=== PATIENT | female | born 1965 | race Caucasian/White ===

== ENCOUNTER → 2019-05-28 16:00 | Outpatient (CLI) | payer BC, SELFPAY ==
--- NOTE | 2019-05-28 16:09 | BI_ITS ---
MAMMOGRAPHY - BILATERAL SCREENING 3-D TOMOSYNTHESIS REASON FOR EXAM: Female, 53 years old. PERTINENT HISTORY: No significant family history. TECHNIQUE: 2-D mammograms and 3-D Tomosynthesis of the breast (s) were performed. CAD was performed. COMPARISON: March 16, 2017 FINDINGS: The breast composition is . Fibroglandular tissue No dense spiculated masses or suspicious microcalcifications are identified. No architectural distortion is identified. There is no skin thickening or nipple retraction. There are benign-appearing lymph nodes in the axillary areas bilaterally There has been no significant change since the prior study March 16, 2017. BI/SCREEN MAMM (CAD) W/GWYN BILAT IMPRESSION: No mammographic signs of malignancy. Routine yearly mammograms recommended. ASSESSMENT CATEGORY: BIRADS Category 1: Negative. A letter regarding these results will be sent to the patient by the facility within 30 days. FOLLOW UP RECOMMENDATION: Yearly follow up mammogram recommended. (A) Approximately 10% of breast cancers are not detected by mammography. A normal mammogram should not delay biopsy of a clinically suspicious abnormality. Electronically Signed: Shaila Walker, at 13:48 EST Tel , Service support ,
== END ==
PROVIDERS: Family Provider Family Medicine; PCP Family Medicine; Referring Provider Nurse Practitioner Family; Visit Provider Nurse Practitioner Family
DX: Z12.31 Encounter for screening mammogram for malignant neoplasm of breast (principal)
CPT/HCPCS: 77063; 77067

== ENCOUNTER → 2019-08-04 10:03 | Outpatient (CLI) | payer BC, SELFPAY ==
[2019-08-04 11:35] LABS: AST(SGOT) 13 U/L (15-37); Alanine Aminotransfer ALT/SGPT 20 U/L (13-56); Albumin, Serum 3.9 g/dL (3.2-5.0); Alkaline Phosphatase 84 U/L (45-117); Bilirubin, Direct 0.07 mg/dL (0.00-0.30); Cholesterol 229 mg/dL (200); Globulin 3.8 g/dL (2.2-4.2); High Density Lipoprotein 55 mg/dL; Protein, Total 7.7 g/dL (6.4-8.2); Triglycerides 121 mg/dL; Very Low Density Lipoprotein 24 mg/dL (5-40)
== END ==
PROVIDERS: PCP Nurse Practitioner Family; Referring Provider Nurse Practitioner Family; Visit Provider Nurse Practitioner Family
DX: E78.5 Hyperlipidemia, unspecified (principal)
CPT/HCPCS: 36415; 80061; 80076

== ENCOUNTER → 2020-02-05 13:42 | Outpatient (CLI) | payer BC, SELFPAY ==
[2020-02-05 14:24] LABS: ALB/GLOB Ratio 1.2 RATIO (0.9-2.4); AST(SGOT) 8 U/L (15-37); Alanine Aminotransfer ALT/SGPT 15 U/L (13-56); Alkaline Phosphatase 76 U/L (45-117); Anion Gap 6 (5-15); BUN 13 mg/dL (7-18); BUN/Creat Ratio 15.3 RATIO (10-20); Calcium,Total 9.1 mg/dL (8.5-10.1); Chloride 105 mmol/L (98-107); Cholesterol 238 mg/dL (200); Creatinine, Serum 0.85 mg/dL (0.55-1.02); EST Glomerular Filtration Rate 74 mL/min (>60); Est Glom Filt Rate - Afr Amer 90 mL/min (>60); Globulin 3.3 g/dL (2.2-4.2); Glucose 87 mg/dL (74-106); High Density Lipoprotein 57 mg/dL; Protein, Total 7.3 g/dL (6.4-8.2); Sodium Level 139 mmol/L (136-145); Thyroid Stim Hormone (TSH) 0.88 uIU/mL (0.358-3.74); Triglycerides 141 mg/dL; Very Low Density Lipoprotein 28 mg/dL (5-40)
== END ==
PROVIDERS: PCP Nurse Practitioner Family; Referring Provider Nurse Practitioner Family; Visit Provider Nurse Practitioner Family
DX: I10 Essential (primary) hypertension (principal); E78.5 Hyperlipidemia, unspecified
CPT/HCPCS: 36415; 80053; 80061; 84443

== ENCOUNTER → 2020-07-28 11:24 | Outpatient (CLI) | payer BC, SELFPAY ==
--- NOTE | 2020-07-28 11:27 | BI_ITS ---
MAMMOGRAPHY - BILATERAL SCREENING REASON FOR EXAM: Female, 54 years old. Routine annual screening examination. PERTINENT HISTORY: Non-contributory. TECHNIQUE: Digital bilateral breast gwyn (3D mammographic acquisition) in the CC and MLO projections. 2-D mediolateral oblique (MLO) and craniocaudad (CC) views of both breasts were obtained. CAD: Full Field Digital Mammography with Computer Added Detection was performed. COMPARISON: Comparison is made with prior study dated 05/28/2019 and 03/16/2017. FINDINGS: Breast Composition: There are scattered areas of fibroglandular density. There are no dominant masses or suspicious calcifications. Stable benign-appearing bilateral axillary lymph nodes. No other significant abnormalities are identified. There has been no significant change since the prior study. BI/SCRN MAMM (CAD)W/GWYN BILAT IMPRESSION: Stable bilateral screening mammogram. Yearly follow-up mammogram recommended. (A) ASSESSMENT CATEGORY: BIRADS Category 2: Benign. A letter regarding these results will be sent to the patient by the facility within 30 days. Approximately 10% of breast cancers are not detected by mammography. A normal mammogram should not delay biopsy of a clinically suspicious abnormality. [id number] Electronically Signed: Junior Sun MD at 12:12 EST , Service support ,
== END ==
PROVIDERS: PCP Nurse Practitioner Family; Referring Provider Nurse Practitioner Family; Visit Provider Nurse Practitioner Family
DX: Z12.31 Encounter for screening mammogram for malignant neoplasm of breast (principal)
CPT/HCPCS: 77063; 77067

== ENCOUNTER → 2021-02-01 09:15 | Outpatient (CLI) | payer BC, SELFPAY ==
[2021-02-01 10:32] LABS: ALB/GLOB Ratio 1.2 RATIO (0.9-2.4); AST(SGOT) 18 U/L (15-37); Alanine Aminotransfer ALT/SGPT 31 U/L (13-56); Albumin, Serum 3.8 g/dL (3.2-5.0); Alkaline Phosphatase 68 U/L (45-117); Anion Gap 10 (5-15); BUN 20 mg/dL (7-18); BUN/Creat Ratio 25.3 RATIO (10-20); Calcium,Total 8.9 mg/dL (8.5-10.1); Chloride 104 mmol/L (98-107); Cholesterol 278 mg/dL (200); Creatinine, Serum 0.79 mg/dL (0.55-1.02); EST Glomerular Filtration Rate 80 mL/min (>60); Est Glom Filt Rate - Afr Amer 97 mL/min (>60); Globulin 3.3 g/dL (2.2-4.2); Glucose 89 mg/dL (74-106); High Density Lipoprotein 73 mg/dL; Potassium 4.1 mmol/L (3.5-5.1); Protein, Total 7.1 g/dL (6.4-8.2); Sodium Level 139 mmol/L (136-145); Thyroid Stim Hormone (TSH) 1.06 uIU/mL (0.358-3.74); Triglycerides 98 mg/dL; Very Low Density Lipoprotein 20 mg/dL (5-40)
== END ==
PROVIDERS: PCP Nurse Practitioner Family; Referring Provider Nurse Practitioner Family; Visit Provider Nurse Practitioner Family
DX: I10 Essential (primary) hypertension (principal); E78.5 Hyperlipidemia, unspecified
CPT/HCPCS: 36415; 80053; 80061; 84443

== ENCOUNTER 2021-08-10 11:35 | Outpatient (CLI) | payer BC, SELFPAY ==
[2021-08-10 12:56] LABS: AST(SGOT) 12 U/L (15-37); Alanine Aminotransfer ALT/SGPT 22 U/L (13-56); Alkaline Phosphatase 71 U/L (45-117); Bilirubin, Direct 0.14 mg/dL (0.00-0.30); Cholesterol 203 mg/dL (200); Globulin 3.5 g/dL (2.2-4.2); High Density Lipoprotein 71 mg/dL; Protein, Total 7.5 g/dL (6.4-8.2); Triglycerides 104 mg/dL; Very Low Density Lipoprotein 21 mg/dL (5-40)
== END 2021-08-10 23:59 | disposition home or self-care (01) ==
LOC: LAB 11:36
PROVIDERS: PCP Nurse Practitioner Family; Referring Provider Nurse Practitioner Family; Visit Provider Nurse Practitioner Family
DX: E78.5 Hyperlipidemia, unspecified (principal)
CPT/HCPCS: 36415; 80061; 80076

== ENCOUNTER 2021-09-21 12:03 | Outpatient (CLI) | payer BC, SELFPAY ==
--- NOTE | 2021-09-21 12:06 | BI_ITS ---
MAMMOGRAPHY - BILATERAL SCREENING REASON FOR EXAM: Female, 56 years old. Routine annual screening examination. PERTINENT HISTORY: Non-contributory. TECHNIQUE: Digital bilateral breast gwyn (3D mammographic acquisition) in the CC and MLO projections. 2-D mediolateral oblique (MLO) and craniocaudad (CC) views of both breasts were obtained. CAD: Full Field Digital Mammography with Computer Added Detection was performed. COMPARISON: Comparison is made with prior study dated 07/28/2020 and 05/28/2019 FINDINGS: Breast Composition: There are scattered areas of fibroglandular density. There are no dominant masses or suspicious calcifications. Small benign appearing bilateral axillary. No other significant abnormalities are identified. There has been no significant change since the prior study. BI/SCRN MAMM (CAD)W/GWYN BILAT IMPRESSION: Stable bilateral screening mammogram. Yearly follow-up mammogram recommended. (A) ASSESSMENT CATEGORY: BIRADS Category 2: Benign. A letter regarding these results will be sent to the patient by the facility within 30 days. Approximately 10% of breast cancers are not detected by mammography. A normal mammogram should not delay biopsy of a clinically suspicious abnormality. [id number] Electronically Signed: Junior Sun MD at 12:49 EDT ,
== END 2021-09-21 23:59 | disposition home or self-care (01) ==
LOC: OPBI 12:04
PROVIDERS: PCP Nurse Practitioner Family; Visit Provider Nurse Practitioner Family
DX: Z12.31 Encounter for screening mammogram for malignant neoplasm of breast (principal)
CPT/HCPCS: 77063; 77067

== ENCOUNTER → 2022-10-30 | Outpatient (CLI) | payer OTHER, SELFPAY ==
--- NOTE | 2022-10-30 10:05 | BI_ITS ---
MAMMOGRAPHY - BILATERAL SCREENING REASON FOR EXAM: Female, 57 years old. Routine annual screening examination. PERTINENT HISTORY: Non-contributory. TECHNIQUE: Digital bilateral breast gwyn (3D mammographic acquisition) in the CC and MLO projections. 2-D mediolateral oblique (MLO) and craniocaudad (CC) views of both breasts were obtained. CAD: Full Field Digital Mammography with Computer Added Detection was performed. COMPARISON: Comparison is made with prior study dated September 21, 2021 and January 25, 2021. FINDINGS: Breast Composition: There are scattered areas of fibroglandular density. There are no dominant masses or suspicious calcifications. Stable small benign-appearing bilateral axillary lymph nodes. No other significant abnormalities are identified. There has been no significant change since the prior study. BI/SCRN MAMM (CAD)W/GWYN BILAT IMPRESSION: Stable bilateral screening mammogram. Yearly follow-up mammogram recommended. (A) ASSESSMENT CATEGORY: BIRADS Category 2: Benign. A letter regarding these results will be sent to the patient by the facility within 30 days. Approximately 10% of breast cancers are not detected by mammography. A normal mammogram should not delay biopsy of a clinically suspicious abnormality. [id number] Electronically Signed: Junior Sun MD at 14:57 EDT ,
[2022-10-30 11:06] LABS: Absolute Lymphocyte Count 1.89 X10^3/uL (0.83-4.51); Absolute Neutrophil Count 3.9 X10^3/uL (2.0-7.7); Basophil# 0.03 X10^3/uL; Basophil% 0.5 % (0-1); Eosinophil# 0.03 X10^3/uL; Eosinophils% 0.5 % (0-5); Hematocrit 38.5 % (37-47); Hemoglobin 12.2 g/dL (12.0-15.0); Lymphocyte # 1.89 X10^3/ul (0.83-4.51); Lymphocyte % 30.5 % (19-41); Mean Corp Hgb Conc 31.7 g/dL (32-36); Mean Corpuscular Hgb 29.7 pg (27.0-32.0); Mean Corpuscular Volume 93.7 fL (81-99); Mean Platelet Vol. 9.2 fl (6.2-12.0); Monocyte# 0.33 X10^3/uL; Monocyte% 5.3 % (0-10); NRBC Flagged by Analyzer 0 % (0-5); Neutrophil # 3.89 X10^3/uL (2.7-7.7); Neutrophil % 62.9 % (47-70); Platelet Count 317 K/mm3 (150-450); RBC Distribution Width SD 41.6 fl (35.1-43.9); Red Blood Count 4.11 M/mm3 (4.2-5.4); White Blood Count 6.2 K/mm3 (4.4-11.0)
[2022-10-30 11:34] LABS: Hemoglobin A1c 5.3 % (3.8-5.6)
[2022-10-30 11:38] LABS: ALB/GLOB Ratio 1.2 RATIO (0.9-2.4); AST(SGOT) 18 U/L (15-37); Alanine Aminotransfer ALT/SGPT 24 U/L (13-56); Albumin, Serum 3.8 g/dL (3.2-5.0); Alkaline Phosphatase 73 U/L (45-117); Anion Gap 6 (5-15); BUN 15 mg/dL (7-18); BUN/Creat Ratio 18.4 RATIO (10-20); Calcium,Total 9.6 mg/dL (8.5-10.1); Chloride 105 mmol/L (98-107); Cholesterol 180 mg/dL (200); Creatinine, Serum 0.81 mg/dL (0.55-1.02); EST Glomerular Filtration Rate 77 mL/min (>60); Est Glom Filt Rate - Afr Amer 93 mL/min (>60); Globulin 3.2 g/dL (2.2-4.2); Glucose 99 mg/dL (74-106); High Density Lipoprotein 68 mg/dL; Potassium 4.2 mmol/L (3.5-5.1); Sodium Level 141 mmol/L (136-145); Thyroid Stim Hormone (TSH) 1.01 uIU/mL (0.358-3.74); Triglycerides 133 mg/dL; Very Low Density Lipoprotein 27 mg/dL (5-40)
== END | disposition home or self-care (01) ==
PROVIDERS: PCP Family Medicine; Referring Provider Family Medicine; Visit Provider Family Medicine
DX: Z12.31 Encounter for screening mammogram for malignant neoplasm of breast (principal); Z13.0 Encounter for screening for diseases of the blood and blood-forming organs and certain disorders involving the immune mechanism; Z13.1 Encounter for screening for diabetes mellitus; Z13.29 Encounter for screening for other suspected endocrine disorder
CPT/HCPCS: 36415; 77063; 77067; 80053; 80061; 83036; 84443; 85025

== ENCOUNTER → 2023-01-22 | Outpatient (CLI) | payer OTHER, SELFPAY ==
[2023-01-26 17:43] LABS: HPV HC, High Risk Negative
== END | disposition home or self-care (01) ==
PROVIDERS: PCP Family Medicine; Visit Provider Family Medicine
DX: Z12.4 Encounter for screening for malignant neoplasm of cervix (principal)
CPT/HCPCS: 87624; 88175; G0145

== ENCOUNTER → 2023-11-05 | Outpatient (CLI) | payer OTHER, SELFPAY ==
--- NOTE | 2023-11-05 10:09 | BI_ITS ---
MAMMOGRAPHY - BILATERAL SCREENING REASON FOR EXAM: Female, 58 years old. Routine annual screening examination. PERTINENT HISTORY: Non-contributory. TECHNIQUE: Digital bilateral breast gwyn (3D mammographic acquisition) in the CC and MLO projections. 2-D mediolateral oblique (MLO) and craniocaudad (CC) views of both breasts were obtained. CAD: Full Field Digital Mammography with Computer Added Detection was performed. COMPARISON: Comparison is made with prior study dated October 30, 2022 and September 21, 2021. FINDINGS: Breast Composition: There are scattered areas of fibroglandular density. There are no dominant masses or suspicious calcifications. Stable small benign-appearing bilateral axillary lymph nodes. No other significant abnormalities are identified. There has been no significant change since the prior study. BI/SCRN MAMM (CAD)W/GWYN BILAT IMPRESSION: Stable bilateral screening mammogram. Yearly follow-up mammogram recommended. (A) ASSESSMENT CATEGORY: BIRADS Category 2: Benign. A letter regarding these results will be sent to the patient by the facility within 30 days. Approximately 10% of breast cancers are not detected by mammography. A normal mammogram should not delay biopsy of a clinically suspicious abnormality. [id number] Electronically Signed: Junior Sun MD at 11:19 EDT ,
== END | disposition home or self-care (01) ==
LOC: OPBI 10:08
PROVIDERS: PCP Family Medicine; Referring Provider Family Medicine; Visit Provider Family Medicine
DX: Z12.31 Encounter for screening mammogram for malignant neoplasm of breast (principal)
CPT/HCPCS: 77063; 77067

== ENCOUNTER → 2024-04-15 | Outpatient (CLI) | payer OTHER, SELFPAY ==
[2024-04-15 10:32] LABS: Absolute Lymphocyte Count 1.47 X10^3/uL (0.83-4.51); Absolute Neutrophil Count 4.2 X10^3/uL (2.0-7.7); Basophil# 0.03 X10^3/uL; Basophil% 0.5 % (0-1); Eosinophil# 0.02 X10^3/uL; Eosinophils% 0.3 % (0-5); Hematocrit 37.6 % (37-47); Hemoglobin 12.4 g/dL (12.0-15.0); Lymphocyte # 1.47 X10^3/ul (0.83-4.51); Lymphocyte % 24.3 % (19-41); Mean Platelet Vol. 9.4 fl (6.2-12.0); Monocyte# 0.33 X10^3/uL; Monocyte% 5.4 % (0-10); NRBC Flagged by Analyzer 0 % (0-5); Neutrophil # 4.19 X10^3/uL (2.7-7.7); Neutrophil % 69.2 % (47-70); Platelet Count 322 K/mm3 (150-450); Red Blood Count 4.13 M/mm3 (4.2-5.4); White Blood Count 6.1 K/mm3 (4.4-11.0)
[2024-04-15 11:33] LABS: ALB/GLOB Ratio 1.1 RATIO (0.9-2.4); AST(SGOT) 10 U/L (15-37); Alanine Aminotransfer ALT/SGPT 18 U/L (13-56); Albumin, Serum 3.7 g/dL (3.2-5.0); Alkaline Phosphatase 78 U/L (45-117); Anion Gap 7 (5-15); BUN 14 mg/dL (7-18); BUN/Creat Ratio 16.2 RATIO (10-20); Calcium,Total 9.3 mg/dL (8.5-10.1); Chloride 104 mmol/L (98-107); Cholesterol 205 mg/dL (200); Creatinine, Serum 0.86 mg/dL (0.55-1.02); EST Glomerular Filtration Rate 71 mL/min (>60); Est Glom Filt Rate - Afr Amer 86 mL/min (>60); Globulin 3.4 g/dL (2.2-4.2); Glucose 101 mg/dL (74-106); High Density Lipoprotein 60 mg/dL; Potassium 3.8 mmol/L (3.5-5.1); Protein, Total 7.1 g/dL (6.4-8.2); Sodium Level 137 mmol/L (136-145); Triglycerides 240 mg/dL; Very Low Density Lipoprotein 48 mg/dL (5-40)
[2024-04-15 12:14] LABS: Hemoglobin A1c 5.7 % (3.8-5.6)
== END | disposition home or self-care (01) ==
LOC: LAB 09:55
PROVIDERS: PCP Family Medicine; Referring Provider Family Medicine; Visit Provider Family Medicine
DX: E78.5 Hyperlipidemia, unspecified (principal); Z13.228 Encounter for screening for other metabolic disorders; Z13.0 Encounter for screening for diseases of the blood and blood-forming organs and certain disorders involving the immune mechanism
CPT/HCPCS: 36415; 80053; 80061; 83036; 84443; 85025

== ENCOUNTER → 2024-12-25 | Outpatient (CLI) | payer OTHER, SELFPAY ==
--- NOTE | 2024-12-25 07:42 | BI_ITS ---
EXAM: SCRN MAMM (CAD)W/GWYN BILAT DATE: 12/25/2024 CLINICAL HISTORY: F, Age 59 y/o , SCREENING Noncontributory. TECHNIQUE: SCRN MAMM (CAD)W/GWYN BILAT COMPARISON: Prior exam(s) dated November 05, 2023.. FINDINGS: TISSUE DENSITY: There are scattered areas of fibroglandular density. Bilateral Breast Mammographic Findings: No significant masses, calcifications or other abnormalities are identified. No suspicious masses, areas of developing architectural distortion, or suspicious calcifications. There has been no significant interval change. BI/SCRN MAMM (CAD)W/GWYN BILAT IMPRESSION: Stable examination OVERALL FINAL ASSESSMENT BI-RADS 1: NEGATIVE. RECOMMEND ANNUAL MAMMOGRAPHIC SCREENING. RECOMMENDATION: Routine annual follow-up in 1 Year A letter with findings and recommendations will be mailed to the patient. Reading Location: [id number]
--- OUTSIDE RECORDS SUMMARY | 2024-12-25 08:01 | XMS RPT_ITS | CCD ---
Author Organization [facility] Inform ion Partnership [facility] Care Team Providers Care Tire Wrapper Name Role Phone Cece Avina Attending Unavailable Cece Avina Referring Unavailable Iman Scanlon Primary Care Unavailable Iman Scanlon Attending Unavailable CapoGiorgioon Referring Unavailable Capo, Chalon Primary Care Unavailable Problems Problem Classification Problem Date Documented Da te Episodic/Chronic Disorders of lipid metabolism (1 source) Hyperlipidemia, unspecified; Translations: [Hyperlipidemia, unspecified] Onset: 05-11-2024 Chronic Other screening for suspected conditions (not mental disorders or infectious disease) (1 source) Encounter for screening mammogram for malignant neoplasm of breast; Translations: [Encounter for screening mammogram for malignant neoplasm of breast] Onset: 12-18-2024 Episodic Results Test Name Value Interpretation Reference Range Facility CBC W/Diff, Automatedon 04-01 Absolute Lymph 1.47 X10 3/uL Normal 0.83-4.51 [facility] Comment on above: Order Comment: Order Date: 09/20/23 Order Info: 0184-1 - CBCD Performed By: #### L 100.0100, L501.9520, L501.9985, L500.4100, L500.4050 #### [facility] [address] [place], [address] Absolute Neut 4.2 X10 3/uL Normal 2.0-7.7 [facility] Comment on above: Order Comment: Order Date: 09/20/23 Order Info: 0184-1 - CBCD Performed By: #### L 100.0100, L501.9520, L501.9985, L500.4100, L500.4050 #### [facility] [address] [place], [address] Basophils/100 WBC (Bld) 0.5 % Normal 0-1 [facility] Comment on above: Order Comment: Order Date: 09/20/23 Order Info: 018-1 - CBCD Performed By: #### L 100.0100, L501.9520, L501.9985, L500.4100, L500.4050 #### [facility] [address] [place], [address] Eosinophils/100 WBC (Bld) 0.3 % Normal 0-5 [facility] Comment on above: Order Comment: Order Date: 09/20/23 Order Info: 018-1 - CBCD Performed By: #### L 100.0100, L501.9520, L501.9985, L500.4100, L500.4050 #### [facility] [address] [place], [address] Erythrocyte distribution width (RBC) [Ratio] 12.0 % Normal 11.6-14.6 [facility] Comment on above: Order Comment: Order Date: 09/20/23 Order Info: 018- - CBCD Performed By: #### L 100.0100, L501.9520, L501.9985, L500.4100, L500.4050 #### [facility] [address] [place], [address] Hematocrit (Bld) [Volume fraction] 37.6 % Normal 37-47 [facility] Comment on above: Order Comment: Order Date: 09/20/23 Order Info: 018-1 - CBCD Performed By: #### L 100.0100, L501.9520, L501.9985, L500.4100, L500.4050 #### [facility] [address] [place], [address] Hemoglobin (Bld) [Mass/Vol] 12.4 g/dL Normal 12.0-15.0 [facility] Comment on above: Order Comment: Order Date: 09/20/23 Order Info: 0184- - CBCD Performed By: #### L 100.0100, L501.9520, L501.9985, L500.4100, L500.4050 #### [facility] [address] [place], [address] IG% 0.300 Normal 0.0-0.9 [facility] Comment on above: Order Comment: Order Date: 09/20/23 Order Info: [id number] - CBCD Result Comment: IG% - Immature Granulocytes (promyelocytes, myelocytes and metamyelocytes) > 1% indicates that a LEFT SHIFT is Present. Performed By: #### L 100.0100, L501.9520, L501.9985, L500.4100, L500.4050 #### [facility] [address] [place], [address] Lymphocytes/100 WBC (Bld) 24.3 % Normal 19-41 [facility] Comment on above: Order Comment: Order Date: 09/20/23 Order Info: 0184- - CBCD Performed By: #### L 100.0100, L501.9520, L501.9985, L500.4100, L500.4050 #### [facility] [address] [place], [address] MCH (RBC) [Entitic mass] 30.0 pg Normal 27.0-32.0 [facility] Comment on above: Order Comment: Order Date: 09/20/23 Order Info: 0184- - CBCD Performed By: #### L 100.0100, L501.9520, L501.9985, L500.4100, L500.4050 #### [facility] [address] [place], [address] MCHC (RBC) [Mass/Vol] 33.0 g/dL Normal 32-36 [facility] Comment on above: Order Comment: Order Date: 09/20/23 Order Info: 0184-1 - CBCD Performed By: #### L 100.0100, L501.9520, L501.9985, L500.4100, L500.4050 #### [facility] [address] [place], [address] MCV (RBC) [Entitic vol] 91.0 fL Normal 81-99 [facility] Comment on above: Order Comment: Order Date: 09/20/23 Order Info: 018- - CBCD Performed By: #### L 100.0100, L501.9520, L501.9985, L500.4100, L500.4050 #### [facility] [address] [place], [address] Monocytes/100 WBC (Bld) 5.4 % Normal 0-10 [facility] Comment on above: Order Comment: Order Date: 09/20/23 Order Info: 018- - CBCD Performed By: #### L 100.0100, L501.9520, L501.9985, L500.4100, L500.4050 #### [facility] [address] [place], [address] Neutrophils/100 WBC (Bld) 69.2 % Normal 47-70 [facility] Comment on above: Order Comment: Order Date: 09/20/23 Order Info: 0184- - CBCD Performed By: #### L 100.0100, L501.9520, L501.9985, L500.4100, L500.4050 #### [facility] [address] [place], [address] Nucleated RBC (Bld) [#/Vol] 0 10*3/uL Normal 0-5 [facility] Comment on above: Order Comment: Order Date: 09/20/23 Order Info: 0184-1 - CBCD Performed By: #### L 100.0100, L501.9520, L501.9985, L500.4100, L500.4050 #### [facility] [address] [place], [address] Platelet mean volume (Bld) [Entitic vol] 9.4 fL Normal 6.2-12.0 [facility] Comment on above: Order Comment: Order Date: 09/20/23 Order Info: 0184- - CBCD Performed By: #### L 100.0100, L501.9520, L501.9985, L500.4100, L500.4050 #### [facility] [address] [place], [address] Platelets (Bld) [#/Vol] 322 10*3/uL Normal 150-450 [facility] Comment on above: Order Comment: Order Date: 09/20/23 Order Info: 018- - CBCD Performed By: #### L 100.0100, L501.9520, L501.9985, L500.4100, L500.4050 #### [facility] [address] [place], [address] RBC (Bld) [#/Vol] 4.13 10*6/uL Low 4.2-5.4 [facility] Comment on above: Order Comment: Order Date: 09/20/23 Order Info: 0184- - CBCD Performed By: #### L 100.0100, L501.9520, L501.9985, L500.4100, L500.4050 #### [facility] [address] [place], [address] RDW SD 40.0 fl Normal 35.1-43.9 [facility] Comment on above: Order Comment: Order Date: 09/20/23 Order Info: 0184- - CBCD Performed By: #### L 100.0100, L501.9520, L501.9985, L500.4100, L500.4050 #### [facility] [address] [place], [address] WBC (Bld) [#/Vol] 6.1 10*3/uL Normal 4.4-11.0 [facility] Comment on above: Order Comment: Order Date: 09/20/23 Order Info: 0184-1 - CBCD Performed By: #### L 100.0100, L501.9520, L501.9985, L500.4100, L500.4050 #### [facility] [address] [place], [address] Comprehensive Metabolic Prof ilon 04-15-2024 Albumin [Mass/Vol] 3.7 g/dL Normal 3.2-5.0 [facility] Comment on above: Order Comment: Order Date: 09/20/23 Order Info: 0786-1 - CMP Order Info: [id number] - LIPID Order Info: [id number] - TSH Performed By: #### L 100.0100, L501.9520, L501.9985, L500.4100, L500.4050 #### [facility] [address] [place], [address] Albumin/Globulin [Mass ratio] 1.1 {ratio} Normal 0.9-2.4 [facility] Comment on above: Order Comment: Order Date: 09/20/23 Order Info: 0786-1 - CMP Order Info: [id number] - LIPID Order Info: 301-3 - TSH Performed By: #### L 100.0100, L501.9520, L501.9985, L500.4100, L500.4050 #### [facility] [address] [place], [address] ALK P 78 U/L Normal 45-117 [facility] Comment on above: Order Comment: Order Date: 09/20/23 Order Info: 0786-1 - CMP Order Info: [id number] - LIPID Order Info: 301-3 - TSH Performed By: #### L 100.0100, L501.9520, L501.9985, L500.4100, L500.4050 #### [facility] [address] [place], [address] ALT [Catalytic activity/Vol] 18 U/L Normal 13-56 [facility] Comment on above: Order Comment: Order Date: 09/20/23 Order Info: 86-1 - CMP Order Info: - LIPID Order Info: [id number] - TSH Performed By: #### L 100.0100, L501.9520, L501.9985, L500.4100, L500.4050 #### [facility] [address] [place], [address] AST [Catalytic activity/Vol] 10 U/L Low 15-37 [facility] Comment on above: Order Comment: Order Date: 09/20/23 Order Info: 785-07 - CMP Order Info: - LIPID Order Info: 3013 - TSH Performed By: #### L 100.0100, L501.9520, L501.9985, L500.4100, L500.4050 #### [facility] [address] [place], [address] Bilirubin [Mass/Vol] 0.50 mg/dL Normal 0.20-1.00 [facility] Comment on above: Order Comment: Order Date: 09/20/23 Order Info: 785-07 - CMP Order Info: - LIPID Order Info: [id number] - TSH Result Comment: For patients on eltrombopag therapy, use of Dimension [place] TBIL is not recommended. Performed By: #### L 100.0100, L501.9520, L501.9985, L500.4100, L500.4050 #### [facility] [address] [place], [address] BUN/CRE 16.2 RATIO Normal 10-20 [facility] Comment on above: Order Comment: Order Date: 09/20/23 Order Info: 785- - CMP Order Info: - LIPID Order Info: [id number] - TSH Performed By: #### L 100.0100, L501.9520, L501.9985, L500.4100, L500.4050 #### [facility] [address] [place], [address] CA,Total 9.3 mg/dL Normal 8.5-10.1 [facility] Comment on above: Order Comment: Order Date: 09/20/23 Order Info: 0786 - CMP Order Info: - LIPID Order Info: [id number] - TSH Performed By: #### L 100.0100, L501.9520, L501.9985, L500.4100, L500.4050 #### [facility] [address] [place], [address] Chloride [Moles/Vol] 104 mmol/L Normal 98-107 [facility] Comment on above: Order Comment: Order Date: 09/20/23 Order Info: 07 - CMP Order Info: - LIPID Order Info: [id number] - TSH Performed By: #### L 100.0100, L501.9520, L501.9985, L500.4100, L500.4050 #### [facility] [address] [place], [address] CO2 [Moles/Vol] 26.0 mmol/L Normal 21.0-32.0 [facility] Comment on above: Order Comment: Order Date: 09/20/23 Order Info: 0786 - CMP Order Info: [id number] - LIPID Order Info: [id number] - TSH Performed By: #### L 100.0100, L501.9520, L501.9985, L500.4100, L500.4050 #### [facility] [address] [place], [address] Creatinine [Mass/Vol] 0.86 mg/dL Normal 0.55-1.02 [facility] Comment on above: Order Comment: Order Date: 09/20/23 Order Info: 785-07 - CMP Order Info: - LIPID Order Info: [id number] - TSH Result Comment: The validity of the calculated GFR GFRAA in patients over 70 years has not been determined. Clinical correlation is essential. Performed By: #### L 100.0100, L501.9520, L501.9985, L500.4100, L500.4050 #### [facility] [address] [place], [address] EST GFR - AA 86 mL/min Normal >60 [facility] Comment on above: Order Comment: Order Date: 09/20/23 Order Info: 785-07 - CMP Order Info: - LIPID Order Info: [id number] - TSH Result Comment: Afri can [place] GFR Calc Performed By: #### L 100.0100, L501.9520, L501.9985, L500.4100, L500.4050 #### [facility] [address] [place], [address] GAP 7 Normal 5-15 [facility] Comment on above: Order Comment: Order Date: 09/20/23 Order Info: 785-07 - CMP Order Info: - LIPID Order Info: [id number] - TSH Performed By: #### L 100.0100, L501.9520, L501.9985, L500.4100, L500.4050 #### [facility] [address] [place], [address] GFR/1.73 sq M.predicted among non-blacks MDRD (S/P/Bld) [Vol rate/Area] 71 mL/min/{1.73_m2} Normal >60 [facility] Comment on above: Order Comment: Order Date: 09/20/23 Order Info: 785-07 - CMP Order Info: [id number] - LIPID Order Info: [id number] - TSH Result Comment: Non- GFR Calc Performed By: #### L 100.0100, L501.9520, L501.9985, L500.4100, L500.4050 #### [facility] [address] [place], [address] Globulin (S) [Mass/Vol] 3.4 g/dL Normal 2.2-4.2 [facility] Comment on above: Order Comment: Order Date: 09/20/23 Order Info: 0786- - CMP Order Info: - LIPID Order Info: [id number] - TSH Performed By: #### L 100.0100, L501.9520, L501.9985, L500.4100, L500.4050 #### [facility] [address] [place], [address] Glucose [Mass/Vol] 101 mg/dL Normal 74-106 [facility] Comment on above: Order Comment: Order Date: 09/20/23 Order Info: 785-07 - CMP Order Info: - LIPID Order Info: [id number] - TSH Result Comment: Fast ing Glucose result from 100 to 125 mg/dL suggests IMPAIRED HOMEOSTASIS per A.D.A. criteria. Performed By: #### L 100.0100, L501.9520, L501.9985, L500.4100, L500.4050 #### [facility] [address] [place], [address] Potassium [Moles/Vol] 3.8 mmol/L Normal 3.5-5.1 [facility] Comment on above: Order Comment: Order Date: 09/20/23 Order Info: 0786-1 - CMP Order Info: [id number] - LIPID Order Info: [id number] - TSH Performed By: #### L 100.0100, L501.9520, L501.9985, L500.4100, L500.4050 #### [facility] [address] [place], [address] Sodium [Moles/Vol] 137 mmol/L Normal 136-145 [facility] Comment on above: Order Comment: Order Date: 09/20/23 Order Info: 0786-1 - CMP Order Info: [id number] - LIPID Order Info: [id number] - TSH Performed By: #### L 100.0100, L501.9520, L501.9985, L500.4100, L500.4050 #### [facility] [address] [place], [address] T PROT 7.1 g/dL Normal 6.4-8.2 [facility] Comment on above: Order Comment: Order Date: 09/20/23 Order Info: 0786- - CMP Order Info: [id number] - LIPID Order Info: [id number] - TSH Performed By: #### L 100.0100, L501.9520, L501.9985, L500.4100, L500.4050 #### [facility] [address] [place], [address] Urea nitrogen [Mass/Vol] 14 mg/dL Normal 7-18 [facility] Comment on above: Order Comment: Order Date: 09/20/23 Order Info: 0786- - CMP Order Info: [id number] - LIPID Order Info: [id number] - TSH Performed By: #### L 100.0100, L501.9520, L501.9985, L500.4100, L500.4050 #### [facility] [address] [place], [address] Hemoglobin A1con 04-15-2024 HbA1c (Bld) [Mass fraction] 5.7 % High 3.8-5.6 [facility] Comment on above: Order Comment: Order Date: 09/20/23 Order Info: [id number] - A1C Result Comment: Norm al < 5.7 % Prediabetic 5.7 - 6.4 % Diabetic >or= 6.5 % Please note range changes. Performed By: #### L 100.0100, L501.9520, L501.9985, L500.4100, L500.4050 #### [facility] [address] [place], [address] Lipid Profileon 04-15-2024 Cholesterol [Mass/Vol] 205 mg/dL High 200 [facility] Comment on above: Order Comment: Order Date: 09/20/23 Order Info: 0786-1 - CMP Order Info: [id number] - LIPID Order Info: [id number] - TSH Result Comment: <200 mg/dL Desirable 200-240 mg/dL Borderline >240 mg/dL High Risk Performed By: #### L 100.0100, L501.9520, L501.9985, L500.4100, L500.4050 #### [facility] [address] [place], [address] Cholesterol in HDL [Mass/Vol] 60 mg/dL Normal [facility] Comment on above: Order Comment: Order Date: 09/20/23 Order Info: 07 - CMP Order Info: - LIPID Order Info: 3 - TSH Result Comment: The drugs N-Acetylcysteine and Metamizole may falsely depress this assay. Reference Range HDL <40 mg/dL Low HDL Cholesterol HDL >or= 60 mg/dL High HDL Cholesterol Performed By: #### L 100.0100, L501.9520, L501.9985, L500.4100, L500.4050 #### [facility] [address] [place], [address] Cholesterol in LDL [Mass/Vol] 97 mg/dL Normal 0-130 [facility] Comment on above: Order Comment: Order Date: 09/20/23 Order Info: 0786-1 - CMP Order Info: [id number] - LIPID Order Info: [id number] - TSH Performed By: #### L 100.0100, L501.9520, L501.9985, L500.4100, L500.4050 #### [facility] [address] [place], [address] Cholesterol in VLDL [Mass/Vol] 48 mg/dL High 5-40 [facility] Comment on above: Order Comment: Order Date: 09/20/23 Order Info: 0786- - CMP Order Info: - LIPID Order Info: 3 - TSH Performed By: #### L 100.0100, L501.9520, L501.9985, L500.4100, L500.4050 #### [facility] [address] [place], [place], [address] Triglyceride [Mass/Vol] 240 mg/dL High [facility] Comment on above: Order Comment: Order Date: 09/20/23 Order Info: [id number] - CMP Order Info: - LIPID Order Info: 3 - TSH Result Comment: The drugs N-Acetylcysteine and Metamizole may falsely depress this assay. Serum Triglycerides Reference Interval Normal <150 mg/dL Borderline high 150 - 199 mg/dL High 200 - 499 mg/dL Very High > or = 500 mg/dL Performed By: #### L 100.0100, L501.9520, L501.9985, L500.4100, L500.4050 #### [facility] [address] [place], [address] Thyroid Stim Hormone (TSH)on 04-15-2024 TSH 1.330 uIU/mL Normal 0.358-3.740 [facility] Comment on above: Order Comment: Order Date: 09/20/23 Order Info: 0786 - CMP Order Info: - LIPID Order Info: [id number] - TSH Performed By: #### L 100.0100, L501.9520, L501.9985, L500.4100, L500.4050 #### [facility] [address] [place], [address] Absolute lymphocyte countOrd ered By: Desiree Alcala on 10-30-2022 Lymphocytes Auto (Unsp spec) [#/Vol] 1.89 10*3/uL 0.83-4.51 [facility] Basophil percentageOrdered B y: Desiree Alcala on 10-30-2022 Basophils/100 WBC (Bld) 0.5 % 0-1 [facility] Bilirubin [Mass/Vol] 0.30 mg/dL 0.20-1.00 [facility] Comment on above: For patients on eltr ombopag therapy, use of Dimension [place] TBIL is not recommended. Chloride [Moles/Vol] 105 mmol/L 98-107 [facility] Cholesterol [Mass/Vol] 180 mg/dL <200 [facility] Comment on above: <200 mg/dL Desirable 200-240 mg/dL Borderline >240 mg/dL High Risk Eosinophils/100 WBC (Bld) 0.5 % 0-5 [facility] Glucose [Mass/Vol] 99 mg/dL 74-106 [facility] Neutrophils (Bld) [#/Vol] 3.9 10*3/uL 2.0-7.7 [facility] Neutrophils/100 WBC (Bld) 62.9 % 47-70 [facility] Potassium [Moles/Vol] 4.2 mmol/L 3.5-5.1 [facility] Protein [Mass/Vol] 7.0 g/dL 6.4-8.2 [facility] Sodium [Moles/Vol] 141 mmol/L 136-145 [facility] Triglyceride [Mass/Vol] 133 mg/dL <199 [facility] Comment on above: The drugs N-Acetylcy steine and Metamizole may falsely depress this assay.Serum Triglycerides Reference Interval Normal <150 mg/dL Borderline high 150 - 199 mg/dL High 200 - 499 mg/dL Very High > or = 500 mg/dL WBC (Bld) [#/Vol] 6.2 10*3/uL 4.4-11.0 [facility] Blood erythrocytes count (nu mber/volume)Ordered By: Desiree Alcala on 10-30-2022 RBC (Bld) [#/Vol] 4.11 10*6/uL 4.2-5.4 [facility] Blood hemoglobin measurement (mass/volume)Ordered By: Desiree Alcala on 10-30-2022 Hemoglobin (Bld) [Mass/Vol] 12.2 g/dL 12.0-15.0 [facility] Blood lymphocytes/100 leukoc ytesOrdered By: Desiree Alcala on 10-30-2022 Lymphocytes/100 WBC (Bld) 30.5 % 19-41 [facility] Blood monocytes/100 leukocyt esOrdered By: Desiree Alcala on 10-30-2022 Monocytes/100 WBC (Bld) 5.3 % 0-10 [facility] Blood platelet mean volumeOr dered By: Desiree Alcala on 10-30-2022 Platelet mean volume (Bld) [Entitic vol] 9.2 fL 6.2-12.0 [facility] Determination of erythrocyte mean corpuscular volume (MCV)Ordered By: Desiree Alcala on 10-30-2022 MCV (RBC) [Entitic vol] 93.7 fL 81-99 [facility] Hematocrit Auto (Bld) [Volum e fraction]Ordered By: Desiree Alcala on 10-30-2022 Hematocrit (Bld) [Volume fraction] 38.5 % 37-47 [facility] - Chemistry and C hemistry - challengeOrdered By: Desiree Alcala on 10-30-2022 ALP [Catalytic activity/Vol] 73 U/L 45-117 [facility] ALT [Catalytic activity/Vol] 24 U/L 13-56 [facility] CO2 [Moles/Vol] 30.0 mmol/L 21.0-32.0 [facility] Globulin (S) [Mass/Vol] 3.2 g/dL 2.2-4.2 [facility] Urea nitrogen/Creatinine [Mass ratio] 18.4 mg/mg 10-20 [facility] - Hematology and Cell countsOrdered By: Desiree Alcala on 10-30-2022 Erythrocyte distribution width (RBC) [Entitic vol] 41.6 fL 35.1-43.9 [facility] Erythrocyte distribution width (RBC) [Ratio] 12.0 % 11.6-14.6 [facility] Immature granulocytes/100 WBC (Bld) 0.300 % 0.0-0.9 [facility] Comment on above: IG% - Immature Granu locytes (promyelocytes, myelocytes and metamyelocytes) > 1% indicates that a LEFT SHIFT is Present. MCH (RBC) [Entitic mass] 29.7 pg 27.0-32.0 [facility] Nucleated RBC/100 WBC (Bld) [Ratio] 0 % 0-5 [facility] MCHC Auto (RBC) [Mass/Vol]Or dered By: Desiree Alcala on 10-30-2022 MCHC (RBC) [Mass/Vol] 31.7 g/dL 32-36 [facility] No Panel InformationOrdered By: Desiree Alcala on 10-30-2022 Estimated GFR (MDRD) Amer 93 mL/min >60 [facility] Comment on above: GFR Calc Estimated GFR (MDRD) Non-Af Amer 77 mL/min >60 [facility] Comment on above: Non- GFR Calc Thyroid Stimulating Hormone (TSH) 1.01 uIU/mL 0.358-3.74 [facility] Platelets bldOrdered By: Gianluca Alcala on 10-30-2022 Platelets (Bld) [#/Vol] 317 10*3/uL 150-450 [facility] Serum or plasma albumin rené urement (mass/volume)Ordered By: Desiree Alcala on 10-30-2022 Albumin [Mass/Vol] 3.8 g/dL 3.2-5.0 [facility] Serum or plasma albumin/glob ulin mass ratioOrdered By: Desiree Alcala on 10-30-2022 Albumin/Globulin [Mass ratio] 1.2 {ratio} 0.9-2.4 [facility] Serum or plasma calcium rené urement (mass/volume)Ordered By: Desiree Alcala on 10-30-2022 Calcium [Mass/Vol] 9.6 mg/dL 8.5-10.1 [facility] Serum or plasma cholesterol in HDL measurement (mass/volume)Ordered By: Desiree Alcala on 10-30-2022 Cholesterol in HDL [Mass/Vol] 68 mg/dL >40 [facility] Comment on above: The drugs N-Acetylcy steine and Metamizole may falsely depress this assay. Reference Range HDL <40 mg/dL Low HDL Cholesterol HDL >or= 60 mg/dL High HDL Cholesterol Serum or plasma cholesterol in VLDL measurement (mass/volume)Ordered By: Desiree Alcala on 10-30-2022 Cholesterol in VLDL [Mass/Vol] 27 mg/dL 5-40 [facility] Serum or plasma creatinine m easurement (mass/volume)Ordered By: Desiree Alcala on 10-30-2022 Creatinine [Mass/Vol] 0.81 mg/dL 0.55-1.02 [facility] Comment on above: The validity of the calculated GFR & GFRAA in patients over 70 years has not been determined. Clinical correlation is essential. Serum or plasma low density lipoprotein (LDL) cholesterol measurement (mass/volume)Ordered By: Desiree Alcala on 10-30-2022 Cholesterol in LDL [Mass/Vol] 85 mg/dL 0-130 [facility] Serum or plasma urea nitroge n measurement (mass/volume)Ordered By: Desiree Alcala on 10-30-2022 Urea nitrogen [Mass/Vol] 15 mg/dL 7-18 [facility] Thin prep Papanicolaou smear with manual screeningOrdered By: Desiree Alcala on 10-30-2022 Thin prep Papanicolaou smear with manual screening 18 U/L 15-37 [facility] Thin prep Papanicolaou smear with manual screening 6 5-15 [facility] Whole blood hemoglobin A1c/t otal hemoglobin ratio (mass fraction)Ordered By: Desiree Alcala on 10-30-2022 HbA1c (Bld) [Mass fraction] 5.3 % 3.8-5.6 [facility] Comment on above: Normal < 5.7 % Predi abetic 5.7 - 6.4 % Diabetic >or= 6.5 % Please note range changes. Basophil percentageon 2021 Bilirubin [Mass/Vol] 0.40 mg/dL 0.20-1.00 [facility] Work Phone: Comment on above: For patients on eltr ombopag therapy, use of Dimension [place] TBIL is not recommended. Cholesterol [Mass/Vol] 203 mg/dL <200 [facility] Work Phone: Comment on above: <200 mg/dL Desirable 200-240 mg/dL Borderline >240 mg/dL High Risk Protein [Mass/Vol] 7.5 g/dL 6.4-8.2 [facility] Work Phone: Triglyceride [Mass/Vol] 104 mg/dL [facility] Work Phone: Comment on above: The drugs N-Acetylcy steine and Metamizole may falsely depress this assay.Serum Triglycerides Reference Interval Normal <150 mg/dL Borderline high 150 - 199 mg/dL High 200 - 499 mg/dL Very High > or = 500 mg/dL Direct bilirubinon Bilirubin.direct [Mass/Vol] 0.14 mg/dL 0.00-0.30 [facility] Work Phone: Laboratory - Chemistry and C hemistry - challengeon 08-10-2021 ALP [Catalytic activity/Vol] 71 U/L 45-117 [facility] Work Phone: ALT [Catalytic activity/Vol] 22 U/L 13-56 [facility] Work Phone: Globulin (S) [Mass/Vol] 3.5 g/dL 2.2-4.2 [facility] Work Phone: Serum or plasma albumin rené urement (mass/volume)on 08-10-2021 Albumin [Mass/Vol] 4.0 g/dL 3.2-5.0 [facility] Work Phone: Serum or plasma cholesterol in HDL measurement (mass/volume)on 08-10-2021 Cholesterol in HDL [Mass/Vol] 71 mg/dL [facility] Work Phone: Comment on above: The drugs N-Acetylcy steine and Metamizole may falsely depress this assay. Reference Range HDL <40 mg/dL Low HDL Cholesterol HDL >or= 60 mg/dL High HDL Cholesterol Serum or plasma cholesterol in VLDL measurement (mass/volume)on 08-10-2021 Cholesterol in VLDL [Mass/Vol] 21 mg/dL 5-40 [facility] Work Phone: Serum or plasma low density lipoprotein (LDL) cholesterol measurement (mass/volume)on 08-10-2021 Cholesterol in LDL [Mass/Vol] 111 mg/dL 0-130 [facility] Work Phone: Thin prep Papanicolaou smear with manual screeningon 08-10-2021 Thin prep Papanicolaou smear with manual screening 12 U/L 15-37 [facility] Work Phone: HPVon 08-11-2020 HPV Interp Normal See Interp HPVN [facility] [place] Comment on above: Order Comment: Order placed by AP_HPV_ORDER rule from [id number] Result Comment: High Risk HPV Typing: NEGATIVE HPV types 16, 18, 31, 33, 35, 39, 45, 51, 52, 56, 58, 59, 66 and 68 DNA were undetectable or below the pre-set threshold. The sanjay High-Risk HPV DNA Test is not intended for use as a screening device for Pap normal women under age 30 and is not intended to substitute for regular Pap screening. The sanjay High-Risk HPV DNA Test is designed to augment existing methods for the detection of cervical disease and should be used in conjunction with clinical information derived from other diagnostic and screening tests, physical examinations and full medical history in accordance with appropriate patient management procedures. NOTE: A negative result does not preclude the presence of HPV infection because results depend on adequate specimen collection, absence of inhibitors and sufficient DNA to be detected. See [facility] HPVN Performed By: #### H PV #### [place] [address] HPV Source Cervix Normal [facility] [place] Comment on above: Order Comment: Order placed by AP_HPV_ORDER rule from [id number] Performed By: #### H PV #### [place] [id number] Lead Software Engineer Cytology Reporton 2020 Lead Software Engineer Cytology Report . Pathology Reports Accession: Collected Date/Time: Received Date/Time: Pathologist: [id number] 08/04/2020 08:42 EST 08/04/2020 18:00 EST Lead Software Engineer Cytology Report SPECIMEN: Specimen Description: Liquid Prep w/ HPV Specimen: Cervical Screening or Diagnostic: Screening RELEVANT HISTORY: LMP: [id number] SPECIMEN ADEQUACY: SATISFACTORY FOR EVALUATION ENDOCERVICAL/TRANSFO RMATIONAL ZONE COMPONENT PRESENCE CAN NOT BE DETERMINED DUE TO MARKED ATROPHY INTERPRETATION/RESUL TS: NEGATIVE FOR INTRAEPITHELIAL LESION OR MALIGNANCY ADJUNCTIVE TESTING: HIGH RISK HPV DNA TESTING ORDERED, REPORT TO FOLLOW UNDER SEPARATE COVER COMMENT: This Pap Test was successfully processed and evaluated with the assistance of the [employer] ThinPrep Test Imaging System. Electronically Signed by Pathology report verified by [facility] Screened by: KK Electronically signed by Constance HAMILTON ([facility]) Sign-Out Date: 08/09/2020 09:26 Performing Lab: [facility], [address] [place] [address] Disclaimer The Pap test is a screening test for cervical cancer. As evidenced by published data, it is subject to both inherent false negative and false positive results. Your patient's results should be interpreted in context with pertinent clinical history including gynecological examination. Normal [facility] [place] Comment on above: Performed By: #### G YCR #### [place] [address] Encounters Encounter Date Encounter Type Care Provider Facility Start: 12-25-2024 ambulatory Iman Capo Facility:[facility] Start: 04-15-2024 End: 04-15-2024 ambulatory Cece Alcala [facility] Facility:[facility] Start: 11-05-2023 End: 11-05-2023 ambulatory [facility] Work Phone: Start: 11-05-2023 End: 11-05-2023 Patient encounter procedure [facility] Work Phone: Start: 01-22-2023 End: 01-22-2023 ambulatory [facility] Work Phone: Start: 01-22-2023 End: 01-22-2023 Patient encounter procedure [facility], Specimen Work Phone: Start: 10-30-2022 End: 10-30-2022 ambulatory [facility] Work Phone: Start: 10-30-2022 End: 10-30-2022 Patient encounter procedure [facility] Start: 09-21-2021 End: 09-21-2021 Patient encounter procedure [facility] Start: 08-10-2021 End: 08-10-2021 Patient encounter procedure [facility] Procedures Date Procedure Procedure Detail Performing Clinician Start: 11-05-2023 Screening mammography Start: 10-30-2022 Screening mammography Start: 09-21-2021 Screening mammography Plan of Treatment Date Care Activity Detail Author Human papilloma viru s 16+18+31+33+35+39+45+51+52+56+58+59+68 DNA [Presence] in Cervix by Probe with signal amplification [facility] Path report.final Dx Spec [facility] Payers Date Payer Category Payer Unknown [id number] 2024 Private Health Insurance [id number] 2024 Self-pay [id number] Unknown [id number] Unknown [id number] Unknown [id number] Social History Date Type Detail Facility Tobacco smoking stat [facility] Unknown if ever smoked [facility] Work Phone: Start: 1965 Sex Assigned At Female [facility] Evaluation note Note Date & Type Note Facility Evaluation note No assessment information availa ble [facility] Work Phone: Summary Purpose Family History No Family History Records FoundNo Family History Records Found Advance Directives No Advanced Directives Records FoundNo Advanced Directives Records Found Chief Complaint and Reason for Visit Chief Complaint SCREENING Chief Complaint SCREENING LABSPEC Additional Source Comments INFORMATION SOURCE (unrecogn ized section and content) DATE CREATED AUTHOR 08/13/2020 [facility] ([place]) DATE CREATED AUTHOR AUTHOR'S ORGANIZ ATION 12/21/2024 [facility] Goals (unrecognized section and content) Goals may be documented in a n alternate sectionGoals may be documented in an alternate sectionGoals may be documented in an alternate sectionGoals may be documented in an alternate section Care Teams (unrecognized sec tion and content) Team Status: Active Member Role Status Dates Dr. Melina Hein MD Family Provider Active Desiree Alcala , Primary Care Provider Active Team Status: Inactive Member Role Status Dates Desiree Alcala , Primary Care Provi eulalio, Attending Provider, Referring Provider Active Team Status: Inactive Member Role Status Dates Desiree Alcala , Primary Care Provider, Attending Provider Active FOR RECORDS PERTAINING TO PATIENTS WHO ARE OR HAVE BEEN ENROLLED IN A CHEMICAL DEPENDENCY/SUBSTANCEABUSE PROGRAM, SOME INFORMATION MAY BE OMITTED. This clinical summary was aggregated from multiple sources. Caution should be exercised in using it in the provision of clinical care. This summary normalizes information from multiple sources, and as a consequence, information in this document may materially change the coding, format and clinical context of patient data. In addition, data may be omitted in some cases. CLINICAL DECISIONS SHOULD BE BASED ON THE PRIMARY CLINICAL RECORDS. [employer] [facility]. provides no warranty or guarantee of the accuracy or completeness of information in this document.
== END | disposition home or self-care (01) ==
LOC: OPBI 07:40
PROVIDERS: PCP Family Medicine; Referring Provider Family Medicine; Visit Provider Family Medicine
DX: Z12.31 Encounter for screening mammogram for malignant neoplasm of breast (principal)
CPT/HCPCS: 77063; 77067

== ENCOUNTER → 2025-05-11 | Outpatient (CLI) | payer OTHER, SELFPAY ==
[2025-05-11 12:00] LABS: Hematocrit 38.0 % (37-47); Hemoglobin 12.6 g/dL (12.0-15.0); Mean Corp Hgb Conc 33.2 g/dL (32-36); Mean Corpuscular Volume 89.0 fL (81-99); Mean Platelet Vol. 9.9 fl (6.2-12.0); Platelet Count 348 K/mm3 (150-450); RBC Distribution Width CV 12.4 % (11.6-14.6); RBC Distribution Width SD 40.1 fl (35.1-43.9); Red Blood Count 4.27 M/mm3 (4.2-5.4); White Blood Count 4.9 K/mm3 (4.4-11.0)
[2025-05-11 12:40] LABS: AST(SGOT) 16 U/L (<=31); Alanine Aminotransfer ALT/SGPT 14 U/L (<=34); Albumin, Serum 4.5 g/dL (3.4-4.8); Alkaline Phosphatase 71 U/L (35-104); Anion Gap 13 (5-15); BUN 22 mg/dL (4-19); BUN/Creat Ratio 29.4 RATIO (10-20); Calcium,Total 10.1 mg/dL (7.6-11.0); Carbon Dioxide 23.7 mmol/L (21.0-32.0); Chloride 101 mmol/L (98-108); Cholesterol 260 mg/dL (<=200); Globulin 2.7 g/dL (2.2-4.2); Glucose 99 mg/dL (70-99); Low Density Lipoprotein Calc. 176 mg/dL; Potassium 4.2 mmol/L (3.3-5.1); Triglycerides 112 mg/dL; Very Low Density Lipoprotein 22 mg/dL (5-40); Vitamin D,25 Hydroxy 45.8 ng/mL (30-100); cholesterol:hdl ratio screen 4.06
== END | disposition home or self-care (01) ==
LOC: MFPLAB 09:29
PROVIDERS: PCP Family Medicine; Visit Provider Family Medicine
DX: I10 Essential (primary) hypertension (principal); R53.83 Other fatigue; R73.03 Prediabetes; E78.5 Hyperlipidemia, unspecified
CPT/HCPCS: 36415; 80053; 80061; 82306; 83036; 84443; 85027